=== PATIENT | male | born 1945 | race Caucasian/White ===

== ENCOUNTER 2023-02-15 12:52 | Outpatient (CLI) | payer OTHER | END 2023-02-15 12:53 | disposition home or self-care (01) | LOC: CSHCT 12:52 | PROVIDERS: ATTEND Internal Medicine Cardiovascular Disease | DX: Z01.810 Encounter for preprocedural cardiovascular examination (principal); I48.20 Chronic atrial fibrillation, unspecified | CPT/HCPCS: 71275; 82565 ==

== ENCOUNTER 2023-11-10 14:10 | Emergency (ER) | payer OTHER ==
[~2023-11-10 14:10] MED LIST: Iopamidol 300 61% 100 ML VIAL FS ONE
[2023-11-10 15:04] LABS: #Basophils 0.1 10x3/uL (0.0-0.2); #Eosinphils 0.1 10x3/uL (0.0-0.5); #Monocytes 0.8 10x3/uL (0.0-1.1); #Neutrophils 6.5 10x3/uL (1.5-8.4); %Basophils 0.7 % (0.0-2.0); %Eosinophils 1.2 % (0.0-6.0); %Lymphocytes 12.7 % (18.0-47.0); %Monocytes 9.2 % (0.0-10.0); Hematocrit 38.5 % (38.8-50.0); Hemoglobin 12.8 g/dL (13.5-17.5); Mean Corpuscular HGB CONC 33.2 g/dL (32.0-36.0); Mean Corpuscular Hemoglobin 28.9 pg (27.0-33.0); Mean Corpuscular Volume 86.9 fl (81.2-95.1); Mean Platelet Volume 9.7 fl (7.4-10.4); Platelet Count 210 10x3/uL (150-450); RBC Distribution Width 16.2 % (11.5-14.5); Red Blood Cell (RBC) Count 4.43 10x6/uL (4.32-5.72); White Blood Cell (WBC) Count 8.7 10x3/uL (3.5-10.5)
[2023-11-10 15:19] LABS: ALT (SGPT) 16 U/L (8-55); AST (SGOT) 18 U/L (5-34); Albumin 3.4 g/dL (3.4-4.8); Alkaline Phosphatase 74 U/L (40-110); Anion Gap 17 mmol/L (10-20); BUN (Urea Nitrogen) 28 mg/dL (8.4-25.7); Bilirubin, Total 0.6 mg/dL (0.2-1.2); Calc. Creatinine Clearance 0 mL/min (70-130); Calcium 8.1 mg/dL (7.8-10.44); Carbon Dioxide 26 mmol/L (23-31); Chloride 99 mmol/L (98-107); Estimated GFR 89; Globulin 2.4 g/dL (2.4-3.5); Glucose 154 mg/dL (83-110); Lipase 35 U/L (8-78); Magnesium 1.5 mg/dL (1.6-2.6); Potassium 3.9 mmol/L (3.5-5.1); Protein, Total 5.8 g/dL (5.8-8.1); Sodium 138 mmol/L (136-145)
[2023-11-10 15:25] LABS: Troponin I 0.025 ng/mL (< 0.028)
[2023-11-10 16:38] LABS: Bilirubin Neg (Negative); Blood, Urine Negative (Negative); Clarity Clear (Clear); Glucose, Urine (Dipstick) Normal (Negative); Ketone, Urine Negative (Negative); Leukocyte Negative (Negative); Nitrite Negative (Negative); Protein, Urine (Dipstick) Negative (Neg-Trace); Urobilinogen Normal mg/dL (Less than 2)
[2023-11-10 16:50] LABS: RBC/HPF 0-3 HPF (0-3)
[2023-11-10 16:51] LABS: Bacteria/HPF None Seen HPF (None Seen); CAUTI Indications for Culture Alt mental st,lethar; WBC/HPF None Seen HPF (0-3)
[2023-11-10 16:53] LABS: Calcium Oxalate Crystals Rare HPF (None Seen)
[2023-11-10 16:54] LABS: Squamous Epithelial 0-3 HPF (0-3)
[2023-11-10 16:55] LABS: Urine Culture Reflex No No
== END 2023-11-10 16:55 | disposition home or self-care (01) ==
LOC: CSHERS 14:10
DX: I95.9 Hypotension, unspecified (principal); I11.0 Hypertensive heart disease with heart failure; I50.9 Heart failure, unspecified
CPT/HCPCS: 70450; 71045; 74177; 80053; 81001; 83690; 83735; 83880; 84484; 85025; 93005; 96360; 96361; Q9967